=== PATIENT | male | born 1940 | race Caucasian/White ===

== ENCOUNTER → 2022-03-19 | Outpatient (CLI) | payer MEDICARE, BC, SELFPAY ==
[2022-03-19 15:23] LABS: Absolute Lymphocyte Count 1.15 X10^3/uL (0.83-4.51); Absolute Neutrophil Count 4.3 X10^3/uL (2.0-7.7); Basophil# 0.06 X10^3/uL; Basophil% 0.9 % (0-1); Eosinophil# 0.37 X10^3/uL; Eosinophils% 5.7 % (0-5); Hematocrit 44.5 % (40-54); Hemoglobin 14.9 g/dL (13.0-16.5); Lymphocyte # 1.15 X10^3/ul (0.83-4.51); Lymphocyte % 17.7 % (19-41); Mean Corp Hgb Conc 33.5 g/dL (32-36); Mean Corpuscular Hgb 33.5 pg (27.0-32.0); Mean Platelet Vol. 11.3 fl (6.2-12.0); Monocyte# 0.61 X10^3/uL; Monocyte% 9.4 % (0-10); NRBC Flagged by Analyzer 0 % (0-5); Neutrophil # 4.27 X10^3/uL (2.7-7.7); Neutrophil % 65.8 % (47-70); Platelet Count 216 K/mm3 (150-450); RBC Distribution Width CV 12.2 % (11.6-14.6); RBC Distribution Width SD 45.4 fl (35.1-43.9); Red Blood Count 4.45 M/mm3 (4.6-6.2); White Blood Count 6.5 K/mm3 (4.4-11.0)
[2022-03-19 15:47] LABS: AST(SGOT) 16 U/L (15-37); Alanine Aminotransfer ALT/SGPT 27 U/L (16-61); Anion Gap 7 (5-15); BUN 15 mg/dL (7-18); BUN/Creat Ratio 15.2 RATIO (10-20); Calcium,Total 9.6 mg/dL (8.5-10.1); Chloride 103 mmol/L (98-107); Creatinine, Serum 0.99 mg/dL (0.70-1.30); EST Glomerular Filtration Rate 78 mL/min (>60); Est Glom Filt Rate - Afr Amer 94 mL/min (>60); Glucose 106 mg/dL (74-106); Potassium 4.5 mmol/L (3.5-5.1); Sodium Level 139 mmol/L (136-145)
[2022-03-19 16:08] LABS: Hepatitis B Surface Antibody Non-Reactive
[2022-03-20 16:35] LABS: Hepatitis B Surface Antigen Non-Reactive (Nonreactive); Hepatitis C Antibody Non-Reactive (Nonreactive)
[2022-03-21 20:05] LABS: Hepatitis B Core Ab Total Negative (Negative)
== END | disposition home or self-care (01) ==
PROVIDERS: PCP Physician Assistant; Referring Provider Dermatology Pediatric Dermatology; Visit Provider Dermatology Pediatric Dermatology
DX: L30.9 Dermatitis, unspecified (principal); Z79.899 Other long term (current) drug therapy; Z79.620 Long term (current) use of immunosuppressive biologic
CPT/HCPCS: 36415; 80048; 84450; 84460; 85025; 86704; 86706; 86803; 87340

== ENCOUNTER → 2022-10-07 | Outpatient (CLI) | payer MEDICARE, BC, SELFPAY ==
[2022-10-07 13:11] LABS: PSA,Total - Annual Screen 6.73 ng/mL (0.00-4.00)
== END | disposition home or self-care (01) ==
LOC: LAB 12:09
PROVIDERS: PCP Physician Assistant
DX: Z12.5 Encounter for screening for malignant neoplasm of prostate (principal)
CPT/HCPCS: 36415; 84153; G0103

== ENCOUNTER → 2023-01-13 | Outpatient (CLI) | payer MEDICARE, BC, SELFPAY | END | disposition home or self-care (01) | LOC: LABSPEC 16:59 | PROVIDERS: PCP Physician Assistant; Referring Provider Urology; Visit Provider Urology | DX: R31.9 Hematuria, unspecified (principal) | CPT/HCPCS: 87077; 87086; 87088; 87186 ==

== ENCOUNTER 2023-01-17 08:44 | Outpatient (CLI) | payer MEDICARE, BC, SELFPAY ==
[2023-01-17 09:10] VITALS: BP 109/74; PULSE 78; RESP 18; TEMP 36.6; O2SAT 98
[2023-01-17] MEDS: 0.9% Normal Saline (250mL Bag) 250 ML 15 ML IV (09:12)
[2023-01-17] MEDS: 0.9% Saline Lock 10 ML Syringe IV (09:12)
== END 2023-01-17 10:05 | disposition home or self-care (01) ==
LOC: MEDOUTP 08:45 → MS3 08:46
PROVIDERS: PCP Physician Assistant; Referring Provider Urology; Visit Provider Urology
DX: N30.00 Acute cystitis without hematuria (principal)
CPT/HCPCS: 96365; J7050; A4216

== ENCOUNTER 2023-01-18 08:39 | Outpatient (CLI) | payer MEDICARE, BC, SELFPAY ==
[2023-01-18 09:16] VITALS: BP 121/67; PULSE 68; RESP 18; TEMP 36.6; O2SAT 96
== END 2023-01-18 10:00 | disposition home or self-care (01) ==
LOC: MEDOUTP 08:40 → MS3 08:43
PROVIDERS: PCP Physician Assistant; Referring Provider Urology; Visit Provider Urology
DX: N30.00 Acute cystitis without hematuria (principal)
CPT/HCPCS: 96365

== ENCOUNTER 2023-01-21 13:34 | Observation (INO) | payer MEDICARE, BC, SELFPAY ==
[2023-01-21] VITALS (8 sets, daily range): BP systolic 136–171; BP diastolic 72–93; PULSE 60–77; RESP 18–20; TEMP 36.2–36.8; O2SAT 93–98; BMI 26.6
[2023-01-21 12:27] LABS: Hematocrit 38.3 % (40-54); Hemoglobin 12.6 g/dL (13.0-16.5); Mean Corp Hgb Conc 32.9 g/dL (32-36); Mean Corpuscular Hgb 32.1 pg (27.0-32.0); Mean Corpuscular Volume 97.5 fL (80-94); Mean Platelet Vol. 10.5 fl (6.2-12.0); Platelet Count 201 K/mm3 (150-450); RBC Distribution Width CV 13.5 % (11.6-14.6); RBC Distribution Width SD 48.8 fl (35.1-43.9); Red Blood Count 3.93 M/mm3 (4.6-6.2)
[2023-01-21] MEDS: Lactated Ringers 1,000 ML 15 ML IV (12:29)
[2023-01-21] MEDS: Tobramycin 100 MG in Dextrose 5%-Water (50mL Bag) 50 ML IV (12:30)
[2023-01-21 12:40] LABS: Anion Gap 4 (5-15); BUN 17 mg/dL (7-18); BUN/Creat Ratio 18.1 RATIO (10-20); Chloride 104 mmol/L (98-107); Creatinine, Serum 0.94 mg/dL (0.70-1.30); EST Glomerular Filtration Rate 82 mL/min (>60); Est Glom Filt Rate - Afr Amer 99 mL/min (>60); Estimated Creatinine Clearance 62.68 ml/min; Glucose 103 mg/dL (74-106); Potassium 3.6 mmol/L (3.5-5.1); Sodium Level 137 mmol/L (136-145)
--- NOTE | 2023-01-21 13:33 | HP.PCM_ITS ---
[facility] - General General Date of Service: 01/21/23 Chief Complaint: Bladder stone BPH with obstruction and resistant Pseudomonas [facility] Narrative RUTHIE QUINTANILLA, is a 82 M who presents hospital for laser removal of a large bladder stone he also has a large obstructive prostate and working to do a transurethral resection of the prostate alleviate obstruction. He is also been having recurrent infections and has developed a resistant Pseudomonas infection currently is on tobramycin for this which she is started prior to surgery to try to pretreat him before redoing the TURP. We will consult infectious disease to help optimize treatment for this resistant Pseudomonas infection [facility] Medical History (Updated 01/08/23 @ 15:08 by Lula Del Cid) Alcohol use Back pain Bladder disease Cardiology follow-up encounter DVT (deep venous thrombosis) Heartburn High cholesterol History of echocardiogram History of edema History of irregular heartbeat History of renal disease History of stress test Hypertension Infection Leg cramps Non-smoker Prostate disease Shortness of breath on exertion Wears glasses Home Medications apixaban 5 mg tablet (Eliquis) 5 mg PO BID 01/08/23 [History Last Taken 01/18/23] ascorbate calcium (vitamin C) 500 mg capsule 500 mg PO DAILY 01/08/23 [History Last Taken Unknown] aspirin 81 mg tablet,delayed release 81 mg PO DAILY 01/08/23 [History Last Taken 01/11/23] calcium carbonate 390 mg calcium (1,000 mg) tablet 390 mg PO DAILY 01/08/23 [History Last Taken Unknown] carvedilol 12.5 mg tablet 12.5 mg PO BID 01/08/23 [History Last Taken 01/21/23] cholecalciferol (vitamin D3) 125 mcg (5,000 unit) tablet (Vitamin D3) 125 mcg PO DAILY 01/08/23 [History Last Taken Unknown] coenzyme Q10 100 mg capsule (CoQ-10) 200 mg PO DAILY 01/08/23 [History Last Taken Unknown] finasteride 5 mg tablet 5 mg PO DAILY 01/08/23 [History Last Taken Unknown] glucosamine-chondroitin 250 mg-200 mg tablet (Osteo Bi-Flex) 1 tab PO DAILY 01/08/23 [History Last Taken Unknown] hydrochlorothiazide 25 mg tablet 25 mg PO DAILY 01/08/23 [History Last Taken 01/21/23] lisinopril 20 mg tablet 20 mg PO DAILY 01/08/23 [History Last Taken 01/21/23] lutein 20 mg capsule 20 mg PO DAILY 01/08/23 [History Last Taken Unknown] lycopene 10 mg capsule 20 mg PO DAILY 01/08/23 [History Last Taken Unknown] omega-3 fatty acids 1,000 mg PO DAILY 01/08/23 [History Last Taken Unknown] potassium 99 mg tablet 99 mg PO DAILY 01/08/23 [History Last Taken Unknown] saw palmetto 450 mg capsule 450 mg PO DAILY 01/08/23 [History Last Taken Unknown] selenium 200 mcg capsule 200 mcg PO DAILY 01/08/23 [History Last Taken Unknown] simvastatin 20 mg tablet 20 mg PO QHS 01/08/23 [History Last Taken Unknown] tamsulosin 0.4 mg capsule 0.4 mg PO BID 01/08/23 [History Last Taken Unknown] vitamin B complex 1 cap PO DAILY 01/08/23 [History Last Taken Unknown] Allergy/AdvReac Type Severity Reaction Status Date / Time No Known Allergies Allergy Verified 01/08/23 14:49 Surgical History (Updated 01/08/23 @ 15:08 by Lula Del Cid) History of cardiac catheterization History of coronary artery stent placement History of lithotripsy History of lumbar laminectomy History of open heart surgery History of urologic surgery Hx of appendectomy Hx of colonoscopy Social History Smoking Status: Never smoker Vital Signs Vital Signs Vital Signs: 01/21/23 12:31 01/21/23 12:31 Temperature 98.1 F Temperature Source Temporal Pulse Rate 60 Respiratory Rate 18 Respiratory Pattern Normal Blood Pressure 141/72 H Blood Pressure Mean 95 Blood Pressure Source Monitor Blood Pressure Position Semi-Fowlers Blood Pressure Location Right Arm Pulse Ox 97 Oxygen Delivery Method Room Air Weight Weight: 81.647 kg Body Mass Index (BMI) 26.6 Results Lab / Micro Data 01/21/23 12:25 01/21/23 12:25 Labs: Laboratory Results - last 24 hr 01/21/23 12:25: WBC 6.0, RBC 3.93 L, Hgb 12.6 L, Hct 38.3 L, MCV 97.5 H, MCH 32.1 H, MCHC 32.9, RDW Std Deviation 48.8 H, RDW Coeff of Suzette 13.5, Plt Count 201, MPV 10.5, Sodium 137, Potassium 3.6, Chloride 104, Carbon Dioxide 29.0, Anion Gap 4 L, BUN 17, Creatinine 0.94, Estim Creat Clear Calc 62.68, Est GFR (MDRD) Af Amer 99, Est GFR (MDRD) Non-Af 82, BUN/Creatinine Ratio 18.1, Glucose 103, Calcium 9.0
--- NOTE | 2023-01-21 13:34 | DCINST_ITS ---
Discharge Instructions Diet Discharge Diet: No restrictions Activity Discharge Activity: Return to Normal Activity and May Not Drive (while taking narcotic pain medications.) Dressing / Incision Call your doctor if you observe: Fever of 101 or Higher Follow Up Care Please Follow Up With: Hugo Esparza MD When: Call [phone] for an appointment Test Results: Test results from this visit will be discussed in further detail at your follow- up appointment, if applicable. Discharge Plan Admission Primary Reason for Your Visit: Transurethral section of prostate and removal bladder stone treat infection Attending Provider: Hugo Esparza Primary Care Provider: Gabi Membreno Discharge Orders/Prescriptions Prescriptions: Continued hydrochlorothiazide 25 mg tablet 25 mg PO DAILY carvedilol 12.5 mg tablet 12.5 mg PO BID lisinopril 20 mg tablet 20 mg PO DAILY tamsulosin 0.4 mg capsule 0.4 mg PO BID Patient Comments: TAKE ONE CAPSULE BY MOUTH TWICE DAILY finasteride 5 mg tablet 5 mg PO DAILY Patient Comments: TAKE ONE TABLET BY MOUTH EVERY DAY saw palmetto 450 mg capsule 450 mg PO DAILY Rx Instructions: give with food (meal/snack) lycopene 10 mg capsule 20 mg PO DAILY Rx Instructions: administer after a meal selenium 200 mcg capsule 200 mcg PO DAILY ascorbate calcium (vitamin C) 500 mg capsule 500 mg PO DAILY lutein 20 mg capsule 20 mg PO DAILY Rx Instructions: give with meal/snack aspirin 81 mg tablet,delayed release (DR/EC) 81 mg PO DAILY cholecalciferol (vitamin D3) [Vitamin D3] 125 mcg (5,000 unit) tablet 125 mcg PO DAILY simvastatin 20 mg tablet 20 mg PO QHS potassium 99 mg tablet 99 mg PO DAILY calcium carbonate 390 mg calcium (1,000 mg) tablet 390 mg PO DAILY vitamin B complex Capsule 1 cap PO DAILY coenzyme Q10 [CoQ-10] 100 mg capsule 200 mg PO DAILY omega-3 fatty acids Capsule 1,000 mg PO DAILY glucosamine-chondroitin [Osteo Bi-Flex] 250-200 mg tablet 1 tab PO DAILY Rx Instructions: give after food/meal Held Eliquis 5 mg tablet 5 mg PO BID Hold Instructions: Resume on 02/04/23. Referrals / Follow Up: Hugo Esparza MD [Med Staff - Active Staff] - Gabi Membreno PA [Primary Care Provider] - Disposition Disposition (needs filled in before D/C Order can be placed): Home, Self Care
--- NOTE | 2023-01-21 14:00 | PROS_PTH ---
PATIENT: RUTHIE QUINTANILLA LOC: MS3 U#:[id number] AGE/SX: 82/M ROOM: [facility] [place] RE01/21/[address]: Dr. Hugo Esparza MD : 1940 BED: 1 DIS: 01/22/2023 SPEC #: [id number] RECD: 01/22/23 07:46 STATUS: TRAE MENDOZA #: [id number] HERNAN: 01/21/23 14:[address]: Hugo Esparza DEPT: SURGICAL PATHOLOGY RECD BY: Yuli Hernandez ENTERED: 01/22/23 07:46 SP TYPE: TURP OTHR DR: MD Gabi Reyes PA Tissues: Prostate, NOS Procedures: Surgery Specimen Level IV HEADER OPERATION: Transurethral resection of prostate with Olympus and laser PRE-OP DIAGNOSIS: Bladder stone and BPH with obstruction TISSUE SUBMITTED: Prostate tissue MICROSCOPIC DIAGNOSIS Prostate tissue, Transurethral resection of prostate: Benign prostatic hyperplasia, glandular stromal type. Chronic inflammation. Fragments of stones, clinically bladder stone (gross only). SJ:01/23/2023 MICROSCOPIC DESCRIPTION Slides are reviewed. GROSS DESCRIPTION Received is one container labeled with the patient's name and designated prostate tissue. The specimen consists of a TUR prostate and has multiple irregular fragments of pink-urbina, rubbery, soft tissue that in aggregate weigh 12.2 gm and measure in aggregate 16 x 6 x 2 cm. Two metallic clips and multiple brown stones are noted. Supervisor Dried Yeast tissue is submitted in ten cassettes. Stones and metallic clips are for gross identification. /SJ:cc:flakita 01/22/23 TC:5 CPT: 26186
--- NOTE | 2023-01-21 15:34 | OP.PCM_ITS ---
Report of Operation Date of Procedure: 01/21/23 Pre-Operative Diagnosis: BPH with obstruction very large prostate bladder stone and prior UroLift procedure Post-Operative Diagnosis: Same Surgery/Procedure Performed:: Cystoscopy cystoscopy litholapaxy laser of large bladder stones removal of UroLift clips Transurethral resection of the prostate Description of Surgical Findings:: 82-year-old male was taken back to the operating room after smooth induction of general anesthesia he was placed in dorsolithotomy position. The penis and testicles were prepped and draped in usual sterile fashion went into the urethra with a 26 Palestinian continuous-flow resectoscope and I first thing I did went into the bladder put the laser bridge through the resectoscope and then encountered 2 large stones in the bladder I then used 1000 ?m laser fiber and broke these 2 stones the stones were in total greater than 2.5 cm in size. After the stones were lasered completely and evacuated out of the bladder then I switched over to the resectoscope patient had a prior UroLift procedure. Obviously had failed completely since he still had a lot of obstruction. I then started with the resection I marked out the verumontanum marked out the resection of the sphincter site and then are started resecting the prostate at the 12:00 I resected back then started resecting at the 11:00 and 10:00 I then resected down in the middle part of the prostate I then resected the median lobe that is causing obstruction I then resected the right lobe of the prostate and the left lobe of the prostate during the resection and Then coming across UroLift clips that were buried deep inside the tissue as this would happen this would cause the loop and the resection to melt so I the change several loops as I was doing the resection finally is used the button to try to get the rest of the clips finally all the clips were encountered and removed I then continued with the resection until I had a nice wide open resection I then used the loop to smooth out the resection I did a flow test had a nice wide open flow during the middle the resection I did switch over to 24 noncontinuous flow and then at the end of the case the sphincter was intact I had a nice open channel flow test had a good flow and had a very good open channel still a lot of tissue to resect but did not feel like it is necessary given had a nice open channel there when taken the extra risk and over resecting the prostate and compromising the sphincter control. So at the NS at the end of the case had an open channel good flow good sphincter coaptation all the chips were Ellik out of the bladder but a 22 Palestinian catheter in the bladder on three-way irrigation and he was taken back to PACU in good condition. Surgeon: Hugo Esparza Type of Anesthesia: General Drains: 22fr 3 way Admit VTE Documentation VTE Present on Admission: No VTE Mechan Device Prophylaxis: SCD's VTE Pharm Prophylaxis ordered?: No
[2023-01-21] MEDS: 0.9% Normal Saline (1000mL) 1,000 ML 125 ML IV (17:43)
[2023-01-21] MEDS: Piperacil/Tazobactam 3.375 GM in 0.9% Normal Saline (50mL MB+) 50 ML IV (21:56)
[2023-01-21] MEDS: Docusate Sodium 100 MG Capsule 200 MG PO (22:02)
[2023-01-21] MEDS: Tamsulosin HCl 0.4 MG Capsule PO (22:03)
[2023-01-21] MEDS: Carvedilol 12.5 MG Tablet PO (22:03)
[2023-01-21] MEDS: Atorvastatin Calcium 10 MG Tablet PO (22:03)
[2023-01-21] MEDS: 0.9% Normal Saline (250mL Bag) 250 ML 15 ML IV (22:12)
[2023-01-22 01:11] VITALS: BP 125/74; PULSE 68; RESP 18; TEMP 36.7; O2SAT 95
[2023-01-22] MEDS: 0.9% Normal Saline (1000mL) 1,000 ML 125 ML IV (01:16)
[2023-01-22 05:11] VITALS: BP 117/67; PULSE 65; RESP 14; TEMP 36.7; O2SAT 95
[2023-01-22] MEDS: Piperacil/Tazobactam 3.375 GM in 0.9% Normal Saline (50mL MB+) 50 ML IV ×2 (05:30→14:18)
--- NOTE | 2023-01-22 07:24 | PCM.PN.BLA ---
Progress Note Status post TURP for removal of stones and large prostate, okay to DC [place] for voiding trial. Preop urine culture that demonstrated a very resistant Pseudomonas infection. He was changed to IV Zosyn while inpatient. Awaiting consult for infectious disease and if we can arrange for an outpatient infusions to treat this infection and the patient can go home. Patient desires to have IV infusions done at [facility] in [place].
[2023-01-22 08:26] VITALS: BP 129/67; PULSE 66; RESP 17; TEMP 37; O2SAT 94
[2023-01-22] MEDS: Carvedilol 12.5 MG Tablet PO (08:28)
[2023-01-22] MEDS: Docusate Sodium 100 MG Capsule 200 MG PO (08:28)
[2023-01-22] MEDS: Tamsulosin HCl 0.4 MG Capsule PO (08:29)
[2023-01-22] MEDS: Finasteride 5 MG Tablet PO (08:29)
[2023-01-22] MEDS: Lisinopril 20 MG Tablet PO (08:29)
[2023-01-22] MEDS: hydroCHLOROthiazide 25 MG Tablet PO (08:29)
--- NOTE | 2023-01-22 09:31 | CASEMGMT ---
Social Work SW met with pt to discuss advance directives.? Pt confirms he has completed a living will and health care POA naming his Kerline Fox.? Pt notified that documents are not on file at [facility] and SW requested they be brought in for scanning into the EMR.? KALYAN Elkins
--- NOTE | 2023-01-22 10:10 | PCM.CONS.GEN ---
Assessment & Plan Assessment/Plan (1) Pseudomonas urinary tract infection: PLAN: Now s/p 01/21/23 bladder stone laser and evacuation with removal of urolift clips by Dr. Esparza. Recent ucx with a resistant PsA. Agree with zosyn, will order midline and 10 day course of zosyn with weekly labs. Hopefully now that he has had good source control, this infection can resolve. Will follow, thank you, wrote rx, d/w immigration case worker HPI Consult Data Date of Consult: 01/22/23 HPI Narrative Reason for Consultation: uti HPI Narrative: RUTHIE QUINTANILLA, is a 82 M with BPH and prior Urolift procedure, has been dealing with recurrent pseudomonas uti for past 2-3 months. Given 2 courses of po cipro, then 1 week daily tobra, then 5 days of tobra again leading up to admission yesterday for cystoscopy with litholapaxy of large bladder stone and removal of urolift clips. Plan is for TURP in the future. Feeling ok, perla to come out soon. No fever, no n/v/d. Had some cloudy/bloody urine intermittently these past few months that would improve with abx then return. Full ROS Performed and neg except as noted above. [facility] Medical History Alcohol use Back pain Bladder disease Cardiology follow-up encounter DVT (deep venous thrombosis) Heartburn High cholesterol History of echocardiogram History of edema History of irregular heartbeat History of renal disease History of stress test Hypertension Infection Leg cramps Non-smoker Prostate disease Shortness of breath on exertion Wears glasses Home Medications apixaban 5 mg tablet (Eliquis) 5 mg PO BID 01/08/23 [History Last Taken 01/18/23] ascorbate calcium (vitamin C) 500 mg capsule 500 mg PO DAILY 01/08/23 [History Last Taken Unknown] aspirin 81 mg tablet,delayed release 81 mg PO DAILY 01/08/23 [History Last Taken 01/11/23] calcium carbonate 390 mg calcium (1,000 mg) tablet 390 mg PO DAILY 01/08/23 [History Last Taken Unknown] carvedilol 12.5 mg tablet 12.5 mg PO BID 01/08/23 [History Last Taken 01/21/23] cholecalciferol (vitamin D3) 125 mcg (5,000 unit) tablet (Vitamin D3) 125 mcg PO DAILY 01/08/23 [History Last Taken Unknown] coenzyme Q10 100 mg capsule (CoQ-10) 200 mg PO DAILY 01/08/23 [History Last Taken Unknown] finasteride 5 mg tablet 5 mg PO DAILY 01/08/23 [History Last Taken Unknown] glucosamine-chondroitin 250 mg-200 mg tablet (Osteo Bi-Flex) 1 tab PO DAILY 01/08/23 [History Last Taken Unknown] hydrochlorothiazide 25 mg tablet 25 mg PO DAILY 01/08/23 [History Last Taken 01/21/23] lisinopril 20 mg tablet 20 mg PO DAILY 01/08/23 [History Last Taken 01/21/23] lutein 20 mg capsule 20 mg PO DAILY 01/08/23 [History Last Taken Unknown] lycopene 10 mg capsule 20 mg PO DAILY 01/08/23 [History Last Taken Unknown] omega-3 fatty acids 1,000 mg PO DAILY 01/08/23 [History Last Taken Unknown] potassium 99 mg tablet 99 mg PO DAILY 01/08/23 [History Last Taken Unknown] saw palmetto 450 mg capsule 450 mg PO DAILY 01/08/23 [History Last Taken Unknown] selenium 200 mcg capsule 200 mcg PO DAILY 01/08/23 [History Last Taken Unknown] simvastatin 20 mg tablet 20 mg PO QHS 01/08/23 [History Last Taken Unknown] tamsulosin 0.4 mg capsule 0.4 mg PO BID 01/08/23 [History Last Taken Unknown] vitamin B complex 1 cap PO DAILY 01/08/23 [History Last Taken Unknown] piperacillin-tazobactam 3.375 gram intravenous solution 3.375 g IV Q8H 10 days 01/22/23 [Rx Last Taken Unknown] Allergy/AdvReac Type Severity Reaction Status Date / Time No Known Allergies Allergy Verified 01/08/23 14:49 Surgical History (Updated 01/08/23 @ 15:08 by Lula Del Cid) History of cardiac catheterization History of coronary artery stent placement History of lithotripsy History of lumbar laminectomy History of open heart surgery History of urologic surgery Hx of appendectomy Hx of colonoscopy Social History Smoking Status: Never smoker Physical Exam Const alert, oriented x3 and no apparent distress General Appearance: cooperative HEENT normocephalic and head/scalp atraumatic Eyes PERRL and EOMs intact bilaterally Neck supple and No nodes Resp normal air movement and clear to auscultation bilaterally Cardio regular rate and regular rhythm GI soft to palpation, non-tender and non-distended Extremity General Extremity: Negative for edema Skin no rashes or lesions noted Neuro CN's II-XII intact bilaterally Lab / Micro Data Attestation: I reviewed the patient's lab results. 01/21/23 12:25 01/21/23 12:25 Labs: Laboratory Results - last 24 hr 01/21/23 12:25: WBC 6.0, RBC 3.93 L, Hgb 12.6 L, Hct 38.3 L, MCV 97.5 H, MCH 32.1 H, MCHC 32.9, RDW Std Deviation 48.8 H, RDW Coeff of Suzette 13.5, Plt Count 201, MPV 10.5, Sodium 137, Potassium 3.6, Chloride 104, Carbon Dioxide 29.0, Anion Gap 4 L, BUN 17, Creatinine 0.94, Estim Creat Clear Calc 62.68, Est GFR (MDRD) Af Amer 99, Est GFR (MDRD) Non-Af 82, BUN/Creatinine Ratio 18.1, Glucose 103, Calcium 9.0
--- NOTE | 2023-01-22 11:19 | CASEMGMT ---
Addendum entered by Summer Robison 01/22/23 17:47: Discharge instructions sent to [facility] via [facility] and also faxed to them. Addendum entered by Summer Robison 01/22/23 16:24: Instructions left with Shahbaz PURVIS, to fax discharge instructions and summary to [facility] when available. Addendum entered by Summer Robison 01/22/23 15:38: Midline has been inserted. Midline insertion documentation, MAR, and labs have all been sent to [facility] via [facility] and Leila @ [facility] aware [facility] able to do SOC tomorrow AM. She states they will contact patient to coordinate delivery of meds/supplies to pt's home this evening. Issac @ [facility] notified of same and pt made aware as well. He states [facility] has already contacted him and appt set up for SOC tomorrow AM. Pt denies having other discharge plans or concerns. Discharge instructions and summary will be sent to [facility] when available. Addendum entered by Summer Robison 01/22/23 13:59: Dr Christianson made aware [facility] has accepted him w/SOC tomorrow @ 0800. Per Dr Christianson, it is okay for pt to skip the 10 PM dose of IV Zosyn this PM, if needed, so pt does not have to discharge really late tonight. He also states it is okay to give 2 PM dose later than 2 so not such a large gap between that dose and 0800 dose tomorrow AM. Shahbaz PURVIS, made aware. Pt made aware [facility] able to accept him w/SOC tomorrow @ 0800, pending [facility] is able to get meds/supplies delivered to his home today. He voices appreciation. Message received from [facility] that cost of medication is $4/week drug co-pay. YANIV RIVERA sent message to inquire if there is a daily supply charge also. Awaiting response. Original Note: YANIV RIVERA NOTE: Pt to be discharged home on IV Zosyn Q 8 hrs x [address] Christianson. Pt to have Midline placed today. YANIV RIVERA to room. Introduced self and role. Discussed discharge options and questions answered. Pt wishes to discharge home and would like HHC and he is hopeful to be able to go home today, stating his has dementia and he helps look after her. He states he is teachable/willing to learn IV administration and states would be able to assist as well. A list of HHC providers including quality and resource use data and consistent with the patient's preferred geographic region, medical needs, and insurance network were provided from the [employer]Port Guide. Pt chooses [facility] as 1st preference. Order placed for C: SN. Call to [facility] and referral made. They are able to accept pt w/SOC tomorrow @ 8 AM. Discussed options of Infusion co's and pt given list. Pt denies having preference and stated is okay w/[facility]. Referral sent to [facility] via [employer] and also faxed to them. Call placed to Elo @ [facility] and requested financials benefits be ran and also made aware pt would like to discharge home today, if possible. Awaiting call back w/financial determination. Darlyn FRAGOSON RN CM
--- NOTE | 2023-01-22 12:10 | CASEMGMT ---
Met with patient to complete TORO form. TORO form explained to patient who voiced understanding and signed form. Original form placed in pt?s chart and copy provided to?patient. Lauren Rivas, Discharge Planning Asst
[2023-01-22] MEDS: 0.9% Saline Lock 10 ML Syringe IV (14:18)
[2023-01-22 18:06] VITALS: BP 129/77; PULSE 76; RESP 18; TEMP 36.9; O2SAT 94
== END 2023-01-22 18:14 | disposition home health service (06) ==
LOC: SDC 16:08 → MS3 16:08
PROVIDERS: Anesthesiology; Admitting Provider Urology; PCP Physician Assistant; Referring Provider Urology; Visit Provider Urology
PROC: (CPT 52601; principal; 2023-01-21 13:50)
DX: N40.1 Benign prostatic hyperplasia with lower urinary tract symptoms (principal); N21.0 Calculus in bladder; N39.0 Urinary tract infection, site not specified; Z79.01 Long term (current) use of anticoagulants; B96.5 Pseudomonas (aeruginosa) (mallei) (pseudomallei) as the cause of diseases classified elsewhere; E78.00 Pure hypercholesterolemia, unspecified; I10 Essential (primary) hypertension; N13.8 Other obstructive and reflux uropathy; Z86.718 Personal history of other venous thrombosis and embolism; Z79.82 Long term (current) use of aspirin; Z79.899 Other long term (current) drug therapy; R31.9 Hematuria, unspecified
CPT/HCPCS: 52601; 52318; 00914; 80048; 85027; 88305; 94668; 96361; 96365; 96366; 96367; 99221; J7030; J7050; J7120; A4216; G0378; J2405

== ENCOUNTER 2023-01-28 14:49 | Outpatient (RCR) | payer MEDICARE, BC, SELFPAY ==
[2023-01-28 17:39] LABS: Hematocrit 34.9 % (40-54); Hemoglobin 11.5 g/dL (13.0-16.5); Mean Corpuscular Hgb 32.3 pg (27.0-32.0); Mean Platelet Vol. 11.1 fl (6.2-12.0); Platelet Count 205 K/mm3 (150-450); RBC Distribution Width CV 13.7 % (11.6-14.6); Red Blood Count 3.56 M/mm3 (4.6-6.2); White Blood Count 6.2 K/mm3 (4.4-11.0)
[2023-01-28 18:07] LABS: Anion Gap 8 (5-15); BUN 15 mg/dL (7-18); BUN/Creat Ratio 16.4 RATIO (10-20); Calcium,Total 8.6 mg/dL (8.5-10.1); Chloride 104 mmol/L (98-107); Creatinine, Serum 0.92 mg/dL (0.70-1.30); EST Glomerular Filtration Rate 85 mL/min (>60); Est Glom Filt Rate - Afr Amer 102 mL/min (>60); Glucose 100 mg/dL (74-106); Potassium 3.2 mmol/L (3.5-5.1); Sodium Level 140 mmol/L (136-145)
== END 2023-02-12 18:00 | disposition home or self-care (01) ==
LOC: HHLAB 14:49
PROVIDERS: PCP Physician Assistant; Visit Provider Internal Medicine Infectious Disease
DX: B96.5 Pseudomonas (aeruginosa) (mallei) (pseudomallei) as the cause of diseases classified elsewhere; N13.8 Other obstructive and reflux uropathy; Z45.2 Encounter for adjustment and management of vascular access device; M54.9 Dorsalgia, unspecified; E78.00 Pure hypercholesterolemia, unspecified; I10 Essential (primary) hypertension; R12 Heartburn; R25.2 Cramp and spasm; F10.90 Alcohol use, unspecified, uncomplicated; Z87.440 Personal history of urinary (tract) infections; Z86.718 Personal history of other venous thrombosis and embolism; Z95.5 Presence of coronary angioplasty implant and graft; Z79.82 Long term (current) use of aspirin; Z79.2 Long term (current) use of antibiotics; Z91.81 History of falling
CPT/HCPCS: 36415; 80048; 85027